=== PATIENT | female | born 1960 | race Caucasian/White ===

== ENCOUNTER 2021-07-23 20:03 | Emergency (ER) | payer OTHER, SELFPAY ==
[2021-07-23 22:06] VITALS: BP 137/84; PULSE 78; RESP 16; TEMP 36.6; O2SAT 99; BMI 29.2
--- NOTE | 2021-07-23 23:01 | ED.FEMALEGU ---
HPI - Female Genitourinary General Chief complaint: Urogenital-Female Stated complaint: large lump near vagina Time Seen by Provider: 07/23/21 23:01 Source: patient Mode of arrival: ambulatory Limitations: no limitations History of Present Illness HPI Narrative: 60 yo female presents to the area with a small, soft mass on her external vaginal area that she noticed today when taking a shower. She has never noticed it before. It is non-tender and does not cause her pain. She has no urinary symptoms, bleeding or vaginal discharge. MD elicited complaint: prolapse Onset (ago): minute(s) Location of symptoms: external genitalia and vaginal Female Urogenital Radiation: Non-Radiating Consistency: intermittent Vaginal discharge: none Vaginal bleeding: none Exacerbating factors: none Relieving factors: none Associated symptoms: denies other symptoms Treatment prior to arrival: none Sexual activity: No Related Data Allergies Allergy/AdvReac Type Severity Reaction Status Date / Time Penicillins Allergy Unknown Verified 07/23/21 22:05 Review of Systems Review of Systems: Constitutional: No Fever, No Chills Gastrointestinal: No Nausea, No Vomiting, No Diarrhea, No abdominal Pain Genitourinary: No Dysuria, No Urinary Frequency, No Hematuria, +vaginal mass, +urinary incontinence Musculoskeletal: No joint pain, No Myalgias Skin: No Skin Lesions, No rash Neuro: No Weakness, No Numbness Heme/Lymph: No Bruising, No Lymphadenopathy PMFSH Social History Social History Advance Directives: No Advance Directives Information Provided: No Physical Exam Vital Signs: Vital Signs: Last Vital Signs Temp 97.8 F 07/23/21 22:06 Pulse 78 07/23/21 22:06 Resp 16 07/23/21 22:06 BP 137/84 07/23/21 22:06 Pulse Ox 99 07/23/21 22:06 BMI result Body Mass Index 29.2 Appearance: Alert. Oriented X3. No acute distress. HEENT: normal inspection CVS: Normal heart rate and rhythm. Pulses normal. Respiratory: No respiratory distress. Skin: Skin warm and dry. Normal skin color. Normal skin turgor. No rashes. : normal inspection of labia minora and majora, vaginal introitus with 2cm soft tissue, pink bulge at 6 oclock, nontender. easily pushes back into vagina Extremities: normal inspection, normal ROM x4 Neuro: Oriented X 3. Grossly normal, nonfocal Course Course Course Narrative: 52-year-old female presenting for evaluation soft tissue mass in her vagina that she noticed tonight during the shower. Exam is consistent with pelvic organ prolapse. Easily reduces back into the vagina. She is asymptomatic and is nontender. No further testing or imaging is warranted at this time. 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 Patient agrees with plan. Discharge Plan Discharge Clinical Impression: Uterine prolapse Patient Disposition: Home, Self-Care Instructions: Kegel Exercises for Women (DC), Uterine Prolapse (ED) Additional Instructions: Your exam showed pelvic organ prolapse, either your uterus or your bladder. Follow up with your doctor and your justowriter operator if this bothers you or gets worse. Recommend Kegel exercises to strengthen your pelvic floor muscles - see info provided. Referrals: Maikel Flores MD [Primary Care Provider] - 1 week (pelvic prolapse) Interventions: ED Discharge Assessment Last Done: 07/23/21 23:35 Discharge Date/Time: 07/23/21 23:35
== END 2021-07-23 23:35 | disposition home or self-care (01) ==
PROVIDERS: Emergency Provider Emergency Medicine Emergency Medical Services; PCP Internal Medicine
DX: N81.4 Uterovaginal prolapse, unspecified (principal)
CPT/HCPCS: 99283

== ENCOUNTER 2023-07-30 10:51 | Outpatient (AMB) | payer OTHER, SELFPAY ==
--- NOTE | 2023-07-30 11:20 | A.OFFVIS_ITS ---
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 Patient reports pain has been present for years that has been getting worse, mostly at night making it difficult to sleep. States pain is located on her outer thigh and will radiate down her leg and into the anterior aspect of knee. She describes her pain as throbbing and is tender to the touch. Denies injury. Finds no relief with Tylenol or topical cream. 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 She states she has worsening throbbing pain in her left outer thigh which is tender to touch and radiates down to her leg into the anterior aspect of her knee and foot. Her pain is aggravated with laying on her left side and at night. She denies any hip pain. She finds no relief with Tylenol or topical cream. She does not have a history of diabetes. [facility] Social History (Updated 07/30/23 @ 11:23 by Charlotte Sanchez Cathleen) Patient Tobacco Use Status: Never used Tobacco Current occupational status: unemployed Review of Systems Const All systems reviewed & are unremarkable except as noted in HPI and below Physical Exam Vital Signs: BMI result Body Mass Index 33.5 Const General: cooperative, healthy appearing, comfortable, no acute distress, well developed and alert Orientation/consciousness: patient oriented x3 HEENT Head: Yes normal to inspection, Yes normocephalic and Yes atraumatic Eyes General: appearance normal, both eyes and all related structures Resp Effort & Inspection: normal respiratory effort and able to speak in complete sentences Cardio Rate: regular rate Peripheral pulses: Peripheral pulses 2+ throughout GI Palpation (GI): Soft to palpation Skin Lesions: no lesions Rashes: no rashes Neuro General: patient oriented x3 Extrem Other: Left hip: Normal to inspection. No pain with ROM of the hip. Pain along the greater trochanter. No pain with hip flexion or abduction. Negative tenderness along the SI joint, Negative SLR. NVI. Office Procedures Joint Injection/Drain Joint Injection/Drain Details: right hip bursa injection Prep: site was prepped using aseptic technique, ethochloride spray was applied and injection warnings given Injected: 80 mg of, DepoMedrol, with 8 mL of and 1% plain lidocaine Procedure: The patient tolerated the procedure well and there was some relief with the local anesthesia Coding 32722 - Glenohumeral/Tronchanteric Bursa/Intraarticular Procedure code (CPT) selection complete Assessment & Plan Assessment & Plan (1) Trochanteric bursitis, left hip: Code(s): M70.62 - Trochanteric bursitis, left hip Plan We discussed options today which include steroid injection. They did consent to move forward with the left hip injection, which was tolerated well. I recommended rest, ice and elevation and OTC anti-inflammatories PRN for discomfort. She was also given a handout of home exercises in the office today. If symptoms persist or worsens over the next 6-8 weeks, patient will contact the office, otherwise follow-up as needed. Patient Instructions: Scribed for Chava Romero PA-C, by Karson Duran medical office receptionist assistant, on 07/30/2023 at 11:00 AM EST. IChava PA-C, have personally reviewed and agree with the information entered by the scribe. Coding Level of Care Code New Pt Level 3 (52333) Diagnoses Trochanteric bursitis, left hip M70.62 CPT Codes Coding - Joint 7: 08313 - Glenohumeral/Tronchanteric Bursa/Intraarticular ([id number])
[2023-07-30 11:21] VITALS: BMI 33.5
== END 2023-07-30 12:00 | disposition home or self-care (01) ==
PROVIDERS: PCP Internal Medicine; Visit Provider Physician Assistant
DX: M70.62 Trochanteric bursitis, left hip (principal)
CPT/HCPCS: 20610; 99203

== ENCOUNTER → 2023-07-30 10:51 | Outpatient (BNVA) | payer OTHER, SELFPAY | PROVIDERS: PCP Internal Medicine; Visit Provider Physician Assistant | DX: M70.62 Trochanteric bursitis, left hip (principal) | CPT/HCPCS: 20610; 99202; J1040 ==

== ENCOUNTER 2023-09-01 08:33 | Outpatient (AMB) | payer OTHER, SELFPAY ==
[2023-09-01 08:56] VITALS: BP 120/88; PULSE 76; TEMP 36.1; O2SAT 97; BMI 32.6
--- NOTE | 2023-09-01 08:56 | MHC.OFFWIV ---
Intake Vital Signs 09/01/23 08:56 Height 5 ft 3 in Weight 184 lb BMI 32.6 BP 120/88 Blood Pressure Location Lt brachial Position Sitting Pulse 76 Pulse Source Pulse Oximeter Temp 97.0 F Temp Source Temporal Artery Scan Pulse Oximetry (%) 97 Oxygen Delivery Method Room Air Intake Visit Reasons: EP Lft side neck swollen [id number] Intake Note: pt is here in office today for a complaint of left side neck pain, states there is swelling Patient Tobacco Use Status: Never used Tobacco Allergies Penicillins Allergy (Verified 09/01/23 09:29) Unknown Medication List - Last Reconciled 09/01/23 by Juvenal Freeman MD levothyroxine 100 mcg PO DAILY omeprazole 20 mg PO QAM pantoprazole 20 mg PO DAILY Do you need a note to return to daycare/school/sports/work: No HPI EP Lft side neck swollen [id number] HPI Details 62-year-old female presents to the office for a sick visit. Patient is complaining of pain just beneath the angle of the jaw on the left side. Symptoms started a few days ago. She feels a lump in that area. No difficulty swallowing. No recent dental infections. [facility] Social History (Updated 07/30/23 @ 11:23 by Charlotte Sanchez Cathleen) Patient Tobacco Use Status: Never used Tobacco Current occupational status: unemployed Physical Exam Vital Signs: Last Vital Signs Temp 97.0 F 09/01/23 08:56 Pulse 76 09/01/23 08:56 BP 120/88 09/01/23 08:56 Pulse Ox 97 09/01/23 08:56 Oxygen Delivery Method Room Air 09/01/23 08:56 BMI result Body Mass Index 32.6 HEENT Other: Oral cavity: Using a gloved finger the floor of the mouth was palpated and no nodule or lump felt. Neck: Minimal discomfort at the angle of the mandible. No visible bruising. Assessment & Plan Assessment & Plan (1) Parotitis: Code(s): K11.20 - Sialoadenitis, unspecified Plan: Meloxicam and antibiotic called in. If symptoms do not improve to follow-up here. Coding Level of Care Code Est Pt Level 3 (82826) Diagnoses Parotitis K11.20
== END 2023-09-01 09:43 | disposition home or self-care (01) ==
PROVIDERS: PCP Internal Medicine; Visit Provider Internal Medicine
DX: K11.20 Sialoadenitis, unspecified (principal)
CPT/HCPCS: 99213